=== PATIENT | male | born 2000 | race African-American/Black ===

== ENCOUNTER 2023-08-26 21:41 | Emergency (ER) | payer SELFPAY ==
[~2023-08-26] VITALS: Ht 167.6 cm; Wt 77.1 kg
[2023-08-26 21:46] VITALS: BP 137/89
[2023-08-26 23:01] VITALS: BP 120/73
[2023-08-26 23:16] VITALS: BP 97/70
[2023-08-26 23:46] VITALS: BP 110/59
== END 2023-08-27 00:15 | disposition home or self-care (01) | DRG 556 ==
LOC: ED 21:41
DX: M25.521 Pain in right elbow (principal); M79.601 Pain in right arm; X50.0XXA Overexertion from strenuous movement or load, initial encounter; Y93.89 Activity, other specified; Y92.89 Other specified places as the place of occurrence of the external cause; Y99.0 Civilian activity done for income or pay